=== PATIENT | male | born 1990 | race Hispanic/Latino ===

== ENCOUNTER 2017-11-23 09:21 | Emergency (ER) | payer BC ==
[2017-11-23 10:42] VITALS: BP 115/57; PULSE 90; RESP 16; TEMP 97; O2SAT 100
[2017-11-23] MEDS ORDERED: Sodium Chloride 0.9% 1,000 ML IV SCH (11:00)
--- NOTE | 2017-11-23 11:02 | ED PDOC ---
HPI:Nausea, Vomiting, Diarrhea Time Seen by Provider: 11/23/17 10:28 Chief Complaint (Nursing): GI Problem Additional Complaint(s): 27yo M with no PMHx c/o vomiting/diarrhea. Chills last night, no fever. Vomiting x2 today after eating, food products from this AM and PM, non blood vomitus. Diarrhea x1 today, no blood. Denies chest pain, SOB, abd pain, dysuria , hematuria. No sick contacts. Went to [facility] alone yesterday and ate the food. PCP none Past Medical History Reviewed: Historical Data, Nursing Documentation, Vital Signs Vital Signs: Last Vital Signs Temp 97 F L 11/23/17 10:34 Pulse 90 11/23/17 10:34 Resp 16 11/23/17 10:34 BP 115/57 L 11/23/17 10:34 Pulse Ox 100 11/23/17 10:34 - Medical History PMH: No Chronic Diseases - Surgical History Surgical History: No Surg Hx - Family History Family History: States: No Known Family Hx - Social History Current smoker - smoking cessation education provided: No Alcohol: Social Drugs: Denies - Home Medications Home Medications: Ambulatory Orders Medication Instructions Recorded Famotidine [Pepcid] 20 mg PO BID #20 tab 11/23/17 Ondansetron ODT [Zofran ODT] 4 mg PO Q8H PRN #20 odt 11/23/17 - Allergies Allergies/Adverse Reactions: Allergies Allergy/AdvReac Type Severity Reaction Status Date / Time Apples, celery, cherries, Allergy ANAPHYLAXIS Uncoded 11/23/17 10:43 carrots Some nuts Allergy ANAPHYLAXIS Uncoded 11/23/17 10:45 Review of Systems ROS Statement: Except As Marked, All Systems Reviewed And Found Negative Constitutional: Positive for: Chills Gastrointestinal: Positive for: Vomiting, Diarrhea Physical Exam - Reviewed Nursing Documentation Reviewed: Yes Vital Signs Reviewed: Yes - Physical Exam Appears: Positive for: Well, Non-toxic Head Exam: Positive for: ATRAUMATIC, NORMAL INSPECTION Skin: Positive for: Warm, Dry Eye Exam: Positive for: Normal appearance. Negative for: Scleral icterus Neck: Positive for: Normal, Painless ROM, Supple Cardiovascular/Chest: Positive for: Regular Rate, Rhythm, Chest Non Tender Respiratory: Positive for: Normal Breath Sounds. Negative for: Decreased Breath Sounds Gastrointestinal/Abdominal: Positive for: Bowel Sounds (not hyperactive), Soft. Negative for: Tenderness, Mass, Distended, Guarding Back: Positive for: Normal Inspection Extremity: Positive for: Normal ROM Lymphatic: Negative for: Adenopathy Neurologic/Psych: Positive for: Alert, Oriented - Laboratory Results Result Diagrams: 11/23/17 11:45 11/23/17 11:45 - ECG O2 Sat by Pulse Oximetry: 100 Medical Decision Making Medical Decision Makin DDx gastroenteritis, dehydration CBC, CMP NS IVF bolus 1L x1 zofran 4mg ODT x1 reassessment 1209 comfortable stool cx Disposition - Clinical Impression Clinical Impression: Gastroenteritis - Disposition Referrals: [facility] [Outside] [facility] [Outside] Disposition Time: 16:04 Condition: IMPROVED Prescriptions: Famotidine [Pepcid] 20 mg PO BID #20 tab Ondansetron ODT [Zofran ODT] 4 mg PO Q8H PRN #20 odt PRN Reason: Nausea/Vomiting Instructions: Viral Gastroenteritis, Adult (DC) Forms: [employer] [facility] (Macedonian), [facility] School/Work Excuse
[2017-11-23 11:57] LABS: BASO # 0.1 K/uL (0.0-0.2); BASO % 0.4 % (0.0-2.0); EOS # 0.1 K/uL (0.0-0.7); EOS % 0.4 % (0.0-4.0); HEMOGLOBIN 14.8 g/dL (12.0-18.0); LYMPH # 0.4 K/uL (1.0-4.3); LYMPH % 2.9 % (20.0-40.0); MEAN CELL VOLUME 77.5 fl (80.0-94.0); MEAN CORPUSCULAR HEMOGLOBIN 25.6 pg (27.0-31.0); MONO # 0.6 K/uL (0.0-0.8); MONO % 4.8 % (0.0-10.0); NEUT # 11.8 K/uL (1.8-7.0); NEUT % 91.5 % (50.0-75.0); NRBC % 0.1 % (0.0-0.0); PLATELET COUNT 237 K/uL (130-400); RBC 5.79 Mil/uL (4.40-5.90); RED CELL DISTRIBUTION WIDTH 14.4 % (11.5-14.5); WHITE BLOOD COUNT 12.9 K/uL (4.8-10.8)
[2017-11-23 12:10] LABS: ALB/GLOB RATIO 1.3 (1.0-2.1); ALBUMIN 4.4 g/dL (3.5-5.0); ALT/SGPT 39 U/L (21-72); AST/SGOT 25 U/L (17-59); BLOOD UREA NITROGEN 22 mg/dl (9-20); CALCIUM 9.5 mg/dL (8.4-10.2); GFR AFRICAN-AMERICAN > 60; GFR NON-AFRICAN AMERICAN > 60
[2017-11-23 12:38] LABS: BASOPHIL 1 % (0-2); LYMPHOCYTE 2 % (20-50); MONOCYTE 3 % (0-10); NEUTROPHIL 94 % (42-75); PLATELET ESTIMATE NORMAL (NORMAL); TOTAL CELLS COUNTED 100
[2017-11-23 12:45] LABS: MICROCYTOSIS SLIGHT; OVALOCYTES SLIGHT; TOXIC GRANULATION PRESENT
== END 2017-11-23 14:56 | disposition home or self-care (01) ==
LOC: H.ER 09:21
DX: K52.9 Noninfective gastroenteritis and colitis, unspecified (principal)
CPT/HCPCS: 80053; 85025; 87045; 96360; 96361; 99283; J7040